=== PATIENT | female | born 1965 | race American Indian/Alaskan Native ===

== ENCOUNTER 2017-03-31 19:22 | Emergency (ER) | payer OTHER ==
[~2017-03-31] VITALS: Ht 157.5 cm; Wt 63.1 kg
[~2017-03-31 19:22] MED LIST: ESCI10TA17 PO; HYDR-3124 PO; ONDA-63 PO
[2017-03-31 19:26] VITALS: TEMP 37.1; Ht 157.5 cm; Wt 63.1 kg
[2017-03-31] MEDS ORDERED: ACETAMINOPHEN 500 MG TAB PO STA (19:39)
[2017-03-31] MEDS ORDERED: ONDANSETRON 4MG OD TAB PO ONE (19:45)
--- NOTE | 2017-03-31 19:47 | EMERGENCY ROOM VISIT NOTE ---
History Report prepared by Amada: Igor Kiran Under the Supervision of: Dr. Brice Baron D.O. First contact with patient: 19:30 Chief Complaint: HEADACHE Stated Complaint: HEADACHE,NAUSEA,HIGH BP,CONCUSSION PER DOC History of Present Illness The patient is a 51 year old female who presents to the Emergency Room with complaints of a headache that began last night. At that time, she was decorating a Sergio tree while standing on an ottoman. She accidentally slipped and fell backwards, hitting the back of her head on an unknown object. She did not lose consciousness. Since then, she has been experiencing this headache with associated dizziness, light sensitivity, nausea, neck stiffness, left calf pain, and left shoulder pain. She went to a walk in clinic 1 hour ago and got referred to the ER for a CT scan on her head. She denies any vomiting. She notes that she has not been able to eat very much recently. She has a history anxiety, depression, endometriosis, a uterine ablation, cyst removals, and celiacs disease. She has been using Ibuprofen for pain management. Source of History: patient Onset: last night Position: head Symptom Intensity: moderate Quality: ache Timing: constant Associated Symptoms: + neck pain, + nausea, + back pain (left shoulder), No LOC, No vomiting Note: She is experiencing light sensitivity and left calf pain. Review of Systems See HPI for pertinent positives & negatives. A total of 10 systems reviewed and were otherwise negative. Past Medical & Surgical Medical Problems: (1) Anxiety (2) Celiac disease (3) Depression (4) Endometriosis Surgical Problems: (1) H/O removal of cyst (2) History of endometrial ablation Family History Patient reports no known family medical history. Social History Smoking Status: Never Smoker Smokeless Tobacco Use: No Drug Use: none Marital Status: Housing Status: lives with family Current/Historical Medications Scheduled Escitalopram (Lexapro), 20 MG PO QPM Hydroxyzine Pamoate (Vistaril), 50 MG PO HS Ondasetron Odt (Zofran Odt), 4 MG SL Q6H Allergies Coded Allergies: Peanut (Verified Allergy, Severe, ANAPHYLAXIS, 03/01/15) NUTS (Verified Allergy, Unknown, ANAPHYLAXIS, 03/02/15) ALL NUTS EXCEPT BLACK WALNUTS No Known Drug Allergy (Verified Allergy, Unknown, PT DENIES ANY DRUG ALLERGIES, 03/02/15) Gluten (Verified Adverse Reaction, Intermediate, GI DISTURBANCES, 03/02/15 ) Physical Exam Vital Signs Date Time Temp Pulse Resp B/P (MAP) Pulse Ox O2 Delivery O2 Flow Rate FiO2 03/31/17 21:21 82 16 122/82 97 03/31/17 20:19 79 20 150/105 99 Room Air 03/31/17 19:57 80 16 162/98 99 Room Air 03/31/17 19:26 37.1 96 18 156/108 98 Room Air Physical Exam GENERAL: Patient is awake, alert, and in no acute distress. Patient is somewhat anxious and uncomfortable appearing. EYES: The conjunctivae are clear. The pupils are round and reactive. EARS, NOSE, MOUTH AND THROAT: The nose is without any evidence of any deformity. Mucous membranes are moist tongue is midline NECK: Tenderness to the left perivertebral musculature of the cervical spine. No midline tenderness appreciated. ROM appears to be intact. RESPIRATORY: Normal respiratory effort is noted there is no evidence of wheezing rhonchi or rales CARDIOVASCULAR: Regular rate and rhythm noted there no murmurs rubs or gallops normal S1 normal S2 GASTROINTESTINAL: The abdomen is soft. Bowel sounds are present in all quadrants. Abdomen is nontender BACK: No midline tenderness or or step-off noted range of motion in flexion extension as well as rotation no signs of muscle spasm noted MUSCULOSKELETAL/EXTREMITIES: There is pain with ROM of the left shoulder. No deformities. Tenderness to the left calf. No ecchymosis or deformity. Gait in steady. SKIN: There is no obvious evidence of any rash. There are no petechiae, pallor or cyanosis noted. NEUROLOGIC: Patient is awake alert and oriented x3 strength is symmetric patellar reflexes are 2+ bilaterally Medical Decision & Procedures ER Provider Diagnostic Interpretation: Radiology results as stated below per my review and radiologist interpretation: L SHOULDER MIN 2 VIEWS ROUTINE CLINICAL HISTORY: fall trauma. Pain. COMPARISON: None. DISCUSSION: Subtle grade 1 separation left acromioclavicular joint. No evidence for fracture. Minimal calcific supraspinatus tendinitis. No evidence of dislocation. There is no evidence for soft tissue swelling. IMPRESSION: Slight grade 1 separation left acromioclavicular joint. Minimal calcific supraspinatus tendinitis. The above report was generated using voice recognition software. It may contain grammatical, syntax or spelling errors. Electronically signed by: Myles Valdovinos M.D. 03/31/2017 8:12 PM Dictated Date/Time: 03/31/2017 8:11 PM HEAD WITHOUT CONTRAST (CT) CT DOSE: 1074.36 mGy.cm HISTORY: Trauma fall TECHNIQUE: Multiaxial CT images of the head were performed without the use of intravenous contrast. A dose lowering technique was utilized adhering to the principles of ALARA. Comparison: None. Findings: The paranasal sinuses and mastoid air cells are clear. The calvarium and skull base are intact. The ventricles and sulci are within normal limits. There is no mass, hematoma, midline shift, or acute infarct. Impression: No acute intracranial abnormality. The above report was generated using voice recognition software. It may contain grammatical, syntax or spelling errors. Electronically signed by: Myles Valdovinos M.D. 03/31/2017 8:47 PM Dictated Date/Time: 03/31/2017 8:46 PM CERVICAL SPINE W/O CT DOSE: HISTORY: Trauma fall TECHNIQUE: Multiaxial CT images of the cervical spine were performed and reformatted in the sagittal and coronal plane without the use of contrast. A dose lowering technique was utilized adhering to the principles of ALARA. COMPARISON: None. FINDINGS: No fractures. No subluxation. Prevertebral soft tissues and the C1-C2 interval are intact. No pneumothorax. Mild degenerative disc change. Mild scoliosis presumably on the basis of muscular spasm IMPRESSION: No fractures within the cervical spine. Muscle spasm. Mild degenerative disc change. The above report was generated using voice recognition software. It may contain grammatical, syntax or spelling errors. Electronically signed by: Myles Valdovinos M.D. 03/31/2017 8:50 PM Dictated Date/Time: 03/31/2017 8:48 PM Medications Administered Medications (Trade) Dose Ordered Sig/Adarsh Route Start Time Stop Time Status Last Admin Dose Admin Ondansetron HCl (Zofran Odt) 4 mg ONE ONCE PO 03/31/17 19:45 03/31/17 19:46 DC 03/31/17 19:45 4 MG Acetaminophen (Tylenol Tab) 1,000 mg NOW STAT PO 03/31/17 19:39 03/31/17 19:40 DC 03/31/17 20:17 1,000 MG Ondansetron HCl (ZOFRAN ODT 4MG Home Pack) 1 homepack UD ONCE PO 03/31/17 21:00 03/31/17 21:01 DC 03/31/17 21:18 1 HOMEPACK Oxycodone HCl (Roxicodone Immediate Rel 5MG Home Pack) 1 homepack UD ONCE PO 03/31/17 21:00 03/31/17 21:01 DC 03/31/17 21:18 1 HOMEPACK ED Course 193: The patient was evaluated in room C1. A complete history and physical examination were performed. 1938: Ordered Tylenol Tab 1000 mg PO 1944: Ordered Zofran Odt 4 mg PO 2099: Ordered Oxycodone HCl 1 homepack PO, Ondansetron HCl 1 homepack PO 2103: Upon reevaluation, the patient is resting. I discussed the results and treatment plan with her. She verbalized agreement of the treatment plan. She was discharged home. Medical Decision Differential diagnosis: Etiologies such as fracture, dislocation, intra-abdominal, pneumothorax, intrathoracic , intracranial, neurologic, as well as other traumatic pathologies were entertained. Nursing notes reviewed. The patient is a 51-year-old female who presented to emergency department for an evaluation of her head injury. The patient had a fall and struck the back of her head. She's been having postconcussive type symptoms ever since. The patient was seen by her primary care physician and sent to the emergency department for further evaluation. The patient did not have any focal neurologic deficit. I discussed the patient's laboratory and radiographic studies with her. Her x-ray appeared to be consistent with an before meals separation but her pain appears to be more over the shoulder. She was given follow-up information with the on-call orthopedic physician. The patient was treated with medication for nausea and the emergency department. She had no focal neurologic deficits. She was encouraged to continue all medications as prescribed and call her primary care physician in the morning for further evaluation and for possible referral to a concussion specialist. Otherwise she was encouraged to continue all medications as prescribed and return to the emergency department immediately if symptoms change worsen or the need arises. Medication Reconcilliation Current Medication List: was personally reviewed by me Blood Pressure Screening Patient's blood pressure: Elevated blood pressure Blood pressure disposition: Elevated BP felt to be situational Impression Primary Impression: Head injury Additional Impressions: Concussion Separation of left acromioclavicular joint Scribe Attestation The scribe's documentation has been prepared under my direction and personally reviewed by me in its entirety. I confirm that the note above accurately reflects all work, treatment, procedures, and medical decision making performed by me. Departure Information Dispostion Home / Self-Care Prescriptions Ondasetron Odt (ZOFRAN ODT) 4 Mg Tab 4 MG SL Q6H for Nausea, #15 TAB Prov: Brice Baron, DO 03/31/17 Referrals Jean Molina M.D. (PCP) Forms HOME CARE DOCUMENTATION FORM, IMPORTANT VISIT INFORMATION, Work Instructions Patient Instructions Concussion, ED Sprain AC Joint, [facility] Additional Instructions Call the orthopedic physician in the morning to schedule a follow-up appointment. Rest and avoid any strenuous activity. Your blood pressure was elevated in the emergency department today. I would recommend a recheck when you 're feeling better from your head injury to determine if you need to be started on medications for your blood pressure. I also recommend continuing to use Motrin and Tylenol as directed. Follow-up with your family doctor to discuss the possibility that you may need a referral to a concussion clinic to further evaluate your symptoms otherwise. Problem Qualifiers Primary Impression: Head injury Encounter type: initial encounter Qualified Codes: S09.90XA - Unspecified injury of head, initial encounter Additional Impressions: Concussion Encounter type: initial encounter Loss of consciousness presence/duration: without LOC Qualified Codes: S06.0X0A - Concussion without loss of consciousness, initial encounter Separation of left acromioclavicular joint Encounter type: initial encounter Qualified Codes: S43.102A - Unspecified dislocation of left acromioclavicular joint, initial encounter
[2017-03-31] MEDS ORDERED: HYDR50CA2 PO (19:59)
--- NOTE | 2017-03-31 20:13 | DIAGNOSTIC IMAGING REPORT ---
L SHOULDER MIN 2 VIEWS ROUTINE CLINICAL HISTORY: fall trauma. Pain. COMPARISON: None. DISCUSSION: Subtle grade 1 separation left acromioclavicular joint. No evidence for fracture. Minimal calcific supraspinatus tendinitis. No evidence of dislocation. There is no evidence for soft tissue swelling. IMPRESSION: Slight grade 1 separation left acromioclavicular joint. Minimal calcific supraspinatus tendinitis. The above report was generated using voice recognition software. It may contain grammatical, syntax or spelling errors. Electronically signed by: Myles Valdovinos M.D. 03/31/2017 8:12 PM Dictated Date/Time: 03/31/2017 8:11 PM
--- NOTE | 2017-03-31 20:49 | DIAGNOSTIC IMAGING REPORT ---
HEAD WITHOUT CONTRAST (CT) CT DOSE: 1074.36 mGy.cm HISTORY: Trauma fall TECHNIQUE: Multiaxial CT images of the head were performed without the use of intravenous contrast. A dose lowering technique was utilized adhering to the principles of ALARA. Comparison: None. Findings: The paranasal sinuses and mastoid air cells are clear. The calvarium and skull base are intact. The ventricles and sulci are within normal limits. There is no mass, hematoma, midline shift, or acute infarct. Impression: No acute intracranial abnormality. The above report was generated using voice recognition software. It may contain grammatical, syntax or spelling errors. Electronically signed by: Myles Valdovinos M.D. 03/31/2017 8:47 PM Dictated Date/Time: 03/31/2017 8:46 PM
--- NOTE | 2017-03-31 20:52 | DIAGNOSTIC IMAGING REPORT ---
CERVICAL SPINE W/O CT DOSE: HISTORY: Trauma fall TECHNIQUE: Multiaxial CT images of the cervical spine were performed and reformatted in the sagittal and coronal plane without the use of contrast. A dose lowering technique was utilized adhering to the principles of ALARA. COMPARISON: None. FINDINGS: No fractures. No subluxation. Prevertebral soft tissues and the C1-C2 interval are intact. No pneumothorax. Mild degenerative disc change. Mild scoliosis presumably on the basis of muscular spasm IMPRESSION: No fractures within the cervical spine. Muscle spasm. Mild degenerative disc change. The above report was generated using voice recognition software. It may contain grammatical, syntax or spelling errors. Electronically signed by: Myles Valdovinos M.D. 03/31/2017 8:50 PM Dictated Date/Time: 03/31/2017 8:48 PM
[2017-03-31] MEDS ORDERED: ONDA4TAB10 SL (20:56)
[2017-03-31] MEDS ORDERED: ONDANSETRON HOME PACK 4MG OD TAB PO ONE (21:00)
[2017-03-31] MEDS ORDERED: OXYCODONE IR HOME PACK PO ONE (21:00)
[2017-03-31 21:21] VITALS: BP 122/82; PULSE 82; O2SAT 97
== END 2017-03-31 21:24 | disposition home or self-care (01) ==
LOC: C.EDB 19:23 → C.EDC 21:24
DX: S06.0X0A Concussion without loss of consciousness, initial encounter (principal); S43.102A Unspecified dislocation of left acromioclavicular joint, initial encounter; W08.XXXA Fall from other furniture, initial encounter; W22.8XXA Striking against or struck by other objects, initial encounter; R03.0 Elevated blood-pressure reading, without diagnosis of hypertension

== ENCOUNTER 2017-04-08 10:11 | Emergency (ER) | payer OTHER ==
[~2017-04-08] VITALS: Ht 157.5 cm; Wt 61.8 kg
[~2017-04-08 10:11] MED LIST changes: -HYDR-3124 PO; +HYDR50CA2 PO; -ONDA-63 PO; +ONDA4TAB10 SL
[2017-04-08 10:14] VITALS: TEMP 36.9; Ht 157.5 cm; Wt 61.8 kg
[2017-04-08] MEDS ORDERED: DiphenhydrAMINE HCL 50 MG/ML VIAL IV STA (10:34)
[2017-04-08] MEDS ORDERED: SODIUM CHLORIDE 0.9% 500ML 500 ML IV STA (10:34)
[2017-04-08] MEDS ORDERED: PROCHLORPERAZINE 5 MG/ML 2 ML VIAL IV STA (10:34)
[2017-04-08] MEDS ORDERED: ONDA4TAB10 SL (10:47)
[2017-04-08 11:30] LABS: BASO % 0.5 %; BASO ABS # 0.05 K/uL (0-0.2); COMPLETE YES; EOS % 4.1 %; HEMATOCRIT 43.6 % (37-47); IG% 0.1 %; LYMPH % 26.3 %; LYMPH ABS # 2.62 K/uL (1.2-3.4); MEAN CELL VOLUME 84.8 fL (80-100); MEAN CORPUSCULAR HEMOGLOBIN 30.5 pg (25-34); MEAN PLATELET VOLUME 9.4 fL (7.4-10.4); MONO % 4.5 %; NEUT % 64.5 %; PLATELET COUNT 312 K/uL (130-400); RED BLOOD COUNT 5.14 M/uL (4.2-5.4); WHITE BLOOD COUNT 9.96 K/uL (4.8-10.8)
[2017-04-08 11:45] LABS: CALCIUM 9.1 mg/dl (8.5-10.1); CREATININE 0.81 mg/dl (0.60-1.20); POTASSIUM 3.6 mmol/L (3.5-5.1)
--- NOTE | 2017-04-08 12:16 | DIAGNOSTIC IMAGING REPORT ---
HEAD WITHOUT CONTRAST (CT) CLINICAL HISTORY: 51 years-old Female with fall hit head. Acute head injury status post fall. Acute headache with nausea TECHNIQUE: Multiple axial CT images of the head were obtained without contrast. A dose lowering technique was utilized adhering to the principles of ALARA. CT DOSE: 776.86 mGycm COMPARISON: Head CT 03/31/2017. FINDINGS: No acute intracranial hemorrhage, midline shift, intracranial mass, hydrocephalus, territorial ischemia or abnormal extra-axial collection. The calvarium is intact. The paranasal sinuses, mastoid air cells, and middle ear cavities are clear. There is mild mucosal thickening of the posterior left nasal terminate, partially imaged. IMPRESSION: No acute intracranial abnormal. The above report was generated using voice recognition software. It may contain grammatical, syntax or spelling errors. Electronically signed by: Trae Castro M.D. 04/08/2017 12:14 PM Dictated Date/Time: 04/08/2017 12:12 PM
[2017-04-08 12:44] VITALS: BP 138/95; PULSE 76; O2SAT 97
--- NOTE | 2017-04-08 16:22 | EMERGENCY ROOM VISIT NOTE ---
History Report prepared by Amada: Brayan Colon Under the Supervision of: Dr. Earl Blanco D.O. First contact with patient: 10:23 Chief Complaint: HEAD INJURY (MINOR) Stated Complaint: EXTREME HEADACHE FROM FALL, NAUSEA History of Present Illness The patient is a 51 year old female who presents to the Emergency Room with complaints of worsening headache for the past two days. The patient states that a week and two days ago, the patient states that she fell off an ottoman, and she hit the back of her head. She came to the ED, and she was diagnosed with a concussion and a AC joint in her shoulder. She did not lose consciousness during the event. The patient states that she was given oxycodone , and this has not been able to help her pain recently. The patient notes that for the past two days the headache has worsened in the front of her head, and it is an extreme pain. She additionally is complaining of some neck pain, nausea , and shoulder pain. Pt denies fevers, ear pain, change in vision, numbness, weakness in extremities, chest pain, shortness of breath, vomiting, diarrhea, pain with urination, and melena. Source of History: patient Onset: two days ago Position: head Symptom Intensity: extreme Quality: ache Timing: worsening Associated Symptoms: + neck pain, + nausea, No weakness, No numbness Note: Associated symptoms: Shoulder pain Review of Systems See HPI for pertinent positives & negatives. A total of 10 systems reviewed and were otherwise negative. Past Medical & Surgical Medical Problems: (1) Anxiety (2) Celiac disease (3) Depression (4) Endometriosis Surgical Problems: (1) H/O removal of cyst (2) History of endometrial ablation Family History Patient reports no known family medical history. Social History Smoking Status: Never Smoker Drug Use: none Marital Status: Housing Status: lives with family Current/Historical Medications Scheduled Escitalopram (Lexapro), 20 MG PO QPM Hydroxyzine Pamoate (Vistaril), 50 MG PO HS Ondasetron Odt (Zofran Odt), 4 MG SL Q6H Allergies Coded Allergies: Peanut (Verified Allergy, Severe, ANAPHYLAXIS, 04/08/17) NUTS (Verified Allergy, Unknown, ANAPHYLAXIS, 04/08/17) ALL NUTS EXCEPT BLACK WALNUTS No Known Drug Allergy (Verified Allergy, Unknown, PT DENIES ANY DRUG ALLERGIES, 04/08/17) Gluten (Verified Adverse Reaction, Intermediate, GI DISTURBANCES, 04/08/17) Physical Exam Vital Signs Date Time Temp Pulse Resp B/P (MAP) Pulse Ox O2 Delivery O2 Flow Rate FiO2 04/08/17 12:44 76 20 138/95 97 04/08/17 11:52 74 20 143/82 98 Room Air 04/08/17 11:05 78 20 158/95 96 Room Air 04/08/17 10:18 18 04/08/17 10:14 36.9 104 18 152/113 99 Room Air Physical Exam GENERAL: Laying in bed covering her face with a shirt. No acute distress. EYE EXAM: normal conjunctiva. PERRL and EOM's intact. Funduscopic exam reveals that optic disc is shrap. No AV nicking. OROPHARYNX: no exudate, no erythema, lips, buccal mucosa, and tongue normal and mucous membranes are moist NECK: supple, no nuchal rigidity, no adenopathy, non-tender with full range of motion. LUNGS: Clear to auscultation. Normal chest wall mechanics HEART: no murmurs, S1 normal and S2 normal ABDOMEN: abdomen soft, non-tender, normo-active bowel sounds, no masses, no rebound or guarding. BACK: Back is symmetrical on inspection and there is no deformity, no midline tenderness, no CVA tenderness. SKIN: no rashes and no bruising UPPER EXTREMITIES: upper extremities are grossly normal. LOWER EXTREMITIES: No pitting edema. NEURO EXAM: Normal sensorium, cranial nerves II-XII grossly intact, normal speech, no gross weakness of arms, no gross weakness of legs. No drift. Finger to nose intact. Gross sensation intact. Rapid alternating movements of the upper extremities intact. Medical Decision & Procedures ER Provider Diagnostic Interpretation: Radiology results as stated below per my review and the radiologist's interpretation: HEAD WITHOUT CONTRAST (CT) CLINICAL HISTORY: 51 years-old Female with fall hit head. Acute head injury status post fall. Acute headache with nausea TECHNIQUE: Multiple axial CT images of the head were obtained without contrast. A dose lowering technique was utilized adhering to the principles of ALARA. CT DOSE: 776.86 mGycm COMPARISON: Head CT 03/31/2017. FINDINGS: No acute intracranial hemorrhage, midline shift, intracranial mass, hydrocephalus, territorial ischemia or abnormal extra-axial collection. The calvarium is intact. The paranasal sinuses, mastoid air cells, and middle ear cavities are clear. There is mild mucosal thickening of the posterior left nasal terminate, partially imaged. IMPRESSION: No acute intracranial abnormal. The above report was generated using voice recognition software. It may contain grammatical, syntax or spelling errors. Electronically signed by: Trae Castro M.D. 04/08/2017 12:14 PM Dictated Date/Time: 04/08/2017 12:12 PM Laboratory Results 04/08/17 10:55 Red Blood Count 5.14, Mean Corpuscular Volume 84.8, Mean Corpuscular Hemoglobin 30.5, Mean Corpuscular Hemoglobin Concent 36.0, Mean Platelet Volume 9.4, Neutrophils (%) (Auto) 64.5, Lymphocytes (%) (Auto) 26.3, Monocytes (%) (Auto) 4.5, Eosinophils (%) (Auto) 4.1, Basophils (%) (Auto) 0.5, Neutrophils # (Auto) 6.42, Lymphocytes # (Auto) 2.62, Monocytes # (Auto) 0.45, Eosinophils # (Auto) 0.41, Basophils # (Auto) 0.05 04/08/17 10:55 Test 04/08/17 10:55 White Blood Count 9.96 K/uL (4.8-10.8) Red Blood Count 5.14 M/uL (4.2-5.4) Hemoglobin 15.7 g/dL (12.0-16.0) Hematocrit 43.6 % (37-47) Mean Corpuscular Volume 84.8 fL (80-100) Mean Corpuscular Hemoglobin 30.5 pg (25-34) Mean Corpuscular Hemoglobin Concent 36.0 g/dl (32-36) Platelet Count 312 K/uL (130-400) Mean Platelet Volume 9.4 fL (7.4-10.4) Neutrophils (%) (Auto) 64.5 % Lymphocytes (%) (Auto) 26.3 % Monocytes (%) (Auto) 4.5 % Eosinophils (%) (Auto) 4.1 % Basophils (%) (Auto) 0.5 % Neutrophils # (Auto) 6.42 K/uL (1.4-6.5) Lymphocytes # (Auto) 2.62 K/uL (1.2-3.4) Monocytes # (Auto) 0.45 K/uL (0.11-0.59) Eosinophils # (Auto) 0.41 K/uL (0-0.5) Basophils # (Auto) 0.05 K/uL (0-0.2) RDW Standard Deviation 39.4 fL (36.4-46.3) RDW Coefficient of Variation 12.9 % (11.5-14.5) Immature Granulocyte % (Auto) 0.1 % Immature Granulocyte # (Auto) 0.01 K/uL (0.00-0.02) Anion Gap 7.0 mmol/L (3-11) Est Creatinine Clear Calc Drug Dose 72.7 ml/min Estimated GFR () 98.8 Estimated GFR (Non- 85.3 BUN/Creatinine Ratio 12.0 (10-20) Calcium Level 9.1 mg/dl (8.5-10.1) Laboratory results per my review. Medications Administered Medications (Trade) Dose Ordered Sig/Adarsh Route Start Time Stop Time Status Last Admin Dose Admin Diphenhydramine HCl (Benadryl Inj) 50 mg NOW STAT IV 04/08/17 10:34 04/08/17 10:35 DC 04/08/17 10:57 50 MG Prochlorperazine Edisylate (Compazine Inj) 10 mg NOW STAT IV 04/08/17 10:34 04/08/17 10:35 DC 04/08/17 10:57 10 MG Sodium Chloride 500 ml @ 999 mls/hr Q31M STAT IV 04/08/17 10:34 04/08/17 11:04 DC 04/08/17 10:57 999 MLS/HR ED Course ED COURSE: Vital signs were reviewed and showed tachycardia and hypertension The patients medical record was reviewed The above diagnostic studies were performed and reviewed. ED treatments and interventions as stated above. 1023: The patient was evaluated in room C9. A complete history and physical examination was performed. 1034: Sodium Chloride 500 ml @ 999 mls/hr IV, Compazine 10mg IV, Benadryl 50mg IV 1212: I reevaluated the patient, and she was feeling much better 1233: Upon reevaluation, the patient is doing much better.I discussed my findings with the patient and she understands and agrees with the treatment plan. Based on the patients age, coexisting illnesses, exam and lab findings the decision to treat as an outpatient was made. The patient remained stable while under my care. The patient appeared well at the time of discharge. Medical Decision Differential Diagnosis includes but is not limited to headache, tension headache , cluster headache, migraine, subarachnoid hemorrhage, meningitis, mass, central venous thrombus, concussion, trauma and epidural/subdural hemorrhage. Patient is a 51-year-old female who presents to ER for a headache. This has been present for the past 10 days following a fall which she hit her head. CT at that time was negative. She has the headache has been persistent in the frontal region and back of her head. Recently over the past 48 hours it has been worsening. She is completely neurologically intact. Headache is the same type pain that she has been feeling but worse. It was not sudden on onset. No fevers. No signs meningitis or encephalitis. Repeat CT head was negative. CBC and BMP were unremarkable. Patient was given IV Benadryl and Compazine. She had significant improvement of her symptoms. Again on reevaluation she is completely neurologically intact. She was updated at bedside. She is discharged as I feel this is consistent with worsening of her concussion. I do not believe that this is SAH based on her presentation. Discussed with Pt concerning signs and symptoms to watch out for. Pt was instructed to follow up with their PCP and discussed with the patient their option to return to the ED at anytime for persistent or worsening symptoms. The appropriate anticipatory guidance and out-patient management, including indications for return to the emergency department, were explained at length to the patient and understood. Medication Reconcilliation Current Medication List: was personally reviewed by me Blood Pressure Screening Patient's blood pressure: Elevated blood pressure Blood pressure disposition: Elevated BP felt to be situational Impression Primary Impression: Concussion Additional Impression: Cephalgia Scribe Attestation The scribe's documentation has been prepared under my direction and personally reviewed by me in its entirety. I confirm that the note above accurately reflects all work, treatment, procedures, and medical decision making performed by me. Departure Information Dispostion Home / Self-Care Referrals No Doctor, Assigned (PCP) Forms HOME CARE DOCUMENTATION FORM, IMPORTANT VISIT INFORMATION Patient Instructions ED Concussion, My [facility] Additional Instructions Please follow up with your primary care doctor with in the next 24 hours. Any worsening of your symptoms, please return to the ED immediately. This includes any fevers greater than 100.4, worsening pain, confusion, weakness or numbness in arms or legs, chest pain, shortness breath, persistent nausea, vomiting, unable to eat or drink, or any other concerning signs or symptoms from your standpoint. You were given medications during this visit that will inhibit your ability to drive, operate machinery and work. Please do NOT drive, operate machinery, drink alcohol or work for the next 12hrs. Please take Motrin or Tylenol as needed for pain. Problem Qualifiers Primary Impression: Concussion Encounter type: subsequent encounter Loss of consciousness presence/duration : without LOC Qualified Codes: S06.0X0D - Concussion without loss of consciousness, subsequent encounter Additional Impression: Cephalgia Headache type: unspecified Headache chronicity pattern: acute headache Intractability: not intractable Qualified Codes: R51 - Headache
== END 2017-04-08 12:45 | disposition home or self-care (01) ==
LOC: C.EDB 10:13 → C.EDC 12:45
DX: S06.0X9D Concussion with loss of consciousness of unspecified duration, subsequent encounter (principal); W07.XXXD Fall from chair, subsequent encounter; S43.109D Unspecified dislocation of unspecified acromioclavicular joint, subsequent encounter; R51 Headache; R03.0 Elevated blood-pressure reading, without diagnosis of hypertension

== ENCOUNTER 2017-11-30 14:43 | Emergency (ER) | payer OTHER ==
[~2017-11-30] VITALS: Ht 157.5 cm; Wt 61.0 kg
[~2017-11-30 14:43] MED LIST changes: -HYDR50CA2 PO
[2017-11-30 14:45] VITALS: TEMP 36.6; Ht 157.5 cm; Wt 61.0 kg
[2017-11-30] MEDS ORDERED: SODIUM CHLORIDE 0.9% 1000ML 1,000 ML IV STA (15:02)
--- NOTE | 2017-11-30 15:23 | EMERGENCY ROOM VISIT NOTE ---
ED Visit Note First contact with patient: 14:50 CHIEF COMPLAINT: Dizziness, syncope HISTORY OF PRESENTING ILLNESS: This is a 51-year-old female who presents to the emergency department by private vehicle with her with complaint of dizziness/lightheadedness that has been intermittent for the past several days. Patient states that she was walking outside in the field 2 days ago when she began to feel very lightheaded, nauseated, hot and cold with sweats, she states that she sat down and then fell to her side and passed out for a few seconds. The episode was witnessed, there was no seizure-like activity reported, and she states that she did not hit her head. She states since that time that she has been feeling intermittently lightheaded and dizzy, especially with walking or exerting herself. She also notes that her left arm has been feeling cold and tingly at times, she thinks she may have fallen onto her left arm when she passed out 2 days ago. She states that when she feels dizzy she has also had some feelings of shortness of breath and aching in the left side of her chest, but this has not been persistent or consistent, she states she does not feel that every time she gets dizzy, and she denies any symptoms of chest pain or shortness of breath at this time. She has not noticed increased dizziness with position changes. She denies any associated headache, vision changes, neck pain or stiffness, abdominal pain, vomiting, diarrhea, urinary symptoms, or unusual rash. She does note that she had a head injury and concussion about 8 months ago, but states that she feels she has recovered well from this. She does also mention that she has been having some dizzy spells off and on for the past several months, but has not been evaluated by her doctor for this. She did call her doctor's office today about her symptoms and was told to go to the ED for further evaluation. REVIEW OF SYSTEMS: A complete 10 point review of systems was reviewed with the patient with pertinent positives and negatives as per history of present illness. All else were negative. PAST MEDICAL HISTORY: Reviewed in chart, see problem list below. SOCIAL HISTORY: Lives at home with her . She denies tobacco use. ALLERGIES: Reviewed in chart, see below. PHYSICAL EXAM: CONSTITUTIONAL: Pleasant and cooperative. No acute distress. Mildly dehydrated , but otherwise well appearing and well nourished. HEENT: Normocephalic, atraumatic. Pupils equal, round and reactive to light, EOMI. TMs normal bilaterally. Pharynx normal. Tacky mucous membranes. NECK: Supple, full active range of motion without discomfort. No cervical adenopathy. RESPIRATORY: Clear to auscultation bilaterally with no wheezing, crackles, rhonchi or stridor. Equal expansion bilaterally. CARDIOVASCULAR: Regular rate and rhythm with no murmurs, rubs or gallops. Normal peripheral perfusion. No edema. GASTROINTESTINAL: Soft, nontender, nondistended. No palpable masses or HSM. Bowel sounds present in all quadrants. MUSCULOSKELETAL: No swelling or tenderness to palpation of the calves bilaterally. Negative Homans sign bilaterally. Full range of motion of all joints without discomfort. INTEGUMENTARY: No rash or other significant dermatologic conditions noted. NEUROLOGIC: Alert and oriented X 4 with normal affect. Cranial nerves II-XII grossly intact, no facial droop. No pronator drift. No focal neurologic deficits noted. 5/5 strength in all 4 extremities. Sensation intact to light touch in all 4 extremities. Normal speech. Normal gait observed. Finger-nose- finger testing normal. Negative Romberg. ED COURSE AND MEDICAL DECISION MAKING: CC: Patient presenting with complaint of dizziness/lightheaded, syncope DIFFERENTIAL DIAGNOSIS: Includes, but not limited to orthostatic, vasovagal, dehydration, electrolyte abnormality, anemia, CVA, intracranial hemorrhage, cardiac dysrhythmia, PE, among others. INTERPRETATION OF LABS: No leukocytosis, no anemia, normal platelets, mild hypokalemia, no other significant electrolyte abnormalities, normal renal function, normal liver enzymes. TSH within normal limits. Negative troponin. Serum negative. Negative d-dimer. IMAGING: HEAD CT NONCONTRAST CT DOSE: 638.56 mGycm HISTORY: Dizziness. EVALUATE ALTERED MENTAL STATUS/WEAKNESS TECHNIQUE: Multiaxial CT images of the head were performed without the use of intravenous contrast. Automated exposure control was utilized for this study. A dose lowering technique was utilized adhering to the principles of ALARA. Comparison: Head CT 04/08/2017. Findings: The paranasal sinuses and mastoid air cells are clear. The calvarium and skull base are intact. The ventricles and sulci are within normal limits. There is no mass, hematoma, midline shift, or acute infarct. Impression: No acute intracranial abnormality. ----- TWO VIEW CHEST CLINICAL HISTORY: Weakness. Change in mental status. Syncope. FINDINGS: PA and lateral chest radiographs are compared to study dated 10/10/2010. The cardiomediastinal silhouette is unremarkable. The lungs and pleural spaces are clear. An apparent 3.5 cm density projects along the left heart border. There is no pneumothorax. The bony thorax appears intact. IMPRESSION: 1. No active disease in the chest. 2. An apparent 3.5 cm density projects over the left heart border on the PA view. This could not be corroborated on the lateral view and likely represents overlying soft tissue. A precautionary 1-2 month follow-up examination is recommend. EKG: Shows normal sinus rhythm with a rate of 76 bpm, no ST or T-wave changes, no ectopy, no significant changes noted when compared to his EKG from 12/24/2017 by my interpretation. MEDICATION RECONCILIATION: I attest that I have personally reviewed the patient 's current medication list. INITIAL VITAL SIGNS REVIEW: I reviewed the patient's initial vital signs and interpret them as follows: T: Afebrile; BP: Hypertensive; HR: Within normal limits; RR: Within normal limits; Pulse Ox: Within normal limits on room air. Blood pressure screening: The patient was found to have an elevated blood pressure, she was started on blood pressure medication today and was referred to her primary doctor for recheck and further treatment. SUMMARY: Patient was evaluated at bedside, history and physical exam performed. Patient is alert and oriented, in no acute distress, resting calmly in stretcher. Neurologic exam is normal with no focal deficits. Specifically, no weakness or sensory deficits of the left arm. Patient does appear to be mildly dehydrated on exam, but is not orthostatic. She is also noted to be hypertensive, she denies any history of this and is not on any medications. EKG shows normal sinus rhythm with no acute ischemic changes. Orders were placed at bedside for labs, UA, , IV fluids for hydration, chest x-ray, head CT to evaluate for dizziness and syncope. Patient discussed with Dr. Cerda, who agrees with my assessment and plan. Labs and imaging reviewed as above, unremarkable workup. Head CT negative. She is low risk by well's criteria for PE, and her d-dimer is negative today. She continues to be persistently hypertensive with systolic blood pressures in the 150s and diastolic blood pressures in the 100s. I discussed with the patient the option of starting her on a low dose of blood pressure medication to start managing her blood pressure, she was agreeable to this plan. 5 mg lisinopril was ordered at this time, and Rx was sent to the pharmacy. Patient was educated regarding this medication. Patient reassessed multiple times throughout ED stay, she has remained stable, and has not had any complaints while in the ED. She has remained recently hypertensive. Patient was updated on all results and plan for discharge, she was encouraged to follow closely with her PCP for further workup of her dizziness and hypertension. Patient was also given strict return precautions should her symptoms worsen, she verbalized understanding. Patient was discharged home in stable condition and ambulatory. Problem List Medical Problems: (1) Anxiety Status: Chronic (2) Celiac disease Status: Chronic (3) Depression Status: Chronic (4) Endometriosis Status: Chronic Surgical Problems: (1) H/O removal of cyst Status: Resolved (2) History of endometrial ablation Status: Resolved Current/Historical Medications Scheduled Lisinopril (Zestril), 1 TAB PO DAILY Scheduled PRN Escitalopram Oxalate (Escitalopram Oxalate), 20 MG PO HS PRN for Anxiety Hydroxyzine Pamoate (Vistaril), 50-100 MG PO HS PRN for Anxiety Allergies Coded Allergies: Peanut (Verified Allergy, Severe, ANAPHYLAXIS, 04/08/17) NUTS (Verified Allergy, Unknown, ANAPHYLAXIS, 04/08/17) ALL NUTS EXCEPT BLACK WALNUTS No Known Drug Allergy (Verified Allergy, Unknown, PT DENIES ANY DRUG ALLERGIES, 04/08/17) Gluten (Verified Adverse Reaction, Intermediate, GI DISTURBANCES, 04/08/17) Vital Signs Date Time Temp Pulse Resp B/P (MAP) Pulse Ox O2 Delivery O2 Flow Rate FiO2 11/30/17 19:38 78 16 165/90 99 11/30/17 19:01 71 16 163/86 99 Room Air 11/30/17 17:15 82 18 141/95 99 Room Air 11/30/17 15:31 100 Room Air 11/30/17 15:19 75 18 146/91 98 Room Air 80 151/107 88 152/106 11/30/17 15:09 84 11/30/17 14:52 80 18 176/95 99 Room Air 94 176/104 96 152/103 7/30/18 14:45 36.6 92 18 159/106 100 Room Air Laboratory Results 11/30/17 15:15 Red Blood Count 5.25, Mean Corpuscular Volume 86.9, Mean Corpuscular Hemoglobin 30.5, Mean Corpuscular Hemoglobin Concent 35.1, Mean Platelet Volume 10.2, Neutrophils (%) (Auto) 52.9, Lymphocytes (%) (Auto) 32.6, Monocytes (%) (Auto) 5.3, Eosinophils (%) (Auto) 8.3, Basophils (%) (Auto) 0.6, Neutrophils # (Auto) 4.24, Lymphocytes # (Auto) 2.61, Monocytes # (Auto) 0.42, Eosinophils # (Auto) 0.66, Basophils # (Auto) 0.05 11/30/17 15:15 Test 11/30/17 15:15 11/30/17 15:27 11/30/17 15:32 White Blood Count 8.00 K/uL (4.8-10.8) Red Blood Count 5.25 M/uL (4.2-5.4) Hemoglobin 16.0 g/dL (12.0-16.0) Hematocrit 45.6 % (37-47) Mean Corpuscular Volume 86.9 fL (80-100) Mean Corpuscular Hemoglobin 30.5 pg (25-34) Mean Corpuscular Hemoglobin Concent 35.1 g/dl (32-36) Platelet Count 312 K/uL (130-400) Mean Platelet Volume 10.2 fL (7.4-10.4) Neutrophils (%) (Auto) 52.9 % Lymphocytes (%) (Auto) 32.6 % Monocytes (%) (Auto) 5.3 % Eosinophils (%) (Auto) 8.3 % Basophils (%) (Auto) 0.6 % Neutrophils # (Auto) 4.24 K/uL (1.4-6.5) Lymphocytes # (Auto) 2.61 K/uL (1.2-3.4) Monocytes # (Auto) 0.42 K/uL (0.11-0.59) Eosinophils # (Auto) 0.66 K/uL (0-0.5) Basophils # (Auto) 0.05 K/uL (0-0.2) RDW Standard Deviation 41.3 fL (36.4-46.3) RDW Coefficient of Variation 12.9 % (11.5-14.5) Immature Granulocyte % (Auto) 0.3 % Immature Granulocyte # (Auto) 0.02 K/uL (0.00-0.02) Anion Gap 8.0 mmol/L (3-11) Est Creatinine Clear Calc Drug Dose 71.4 ml/min Estimated GFR () 97.4 Estimated GFR (Non- 84.0 BUN/Creatinine Ratio 14.7 (10-20) Calcium Level 9.1 mg/dl (8.5-10.1) Magnesium Level 2.3 mg/dl (1.8-2.4) Total Bilirubin 0.8 mg/dl (0.2-1) Direct Bilirubin 0.2 mg/dl (0-0.2) Aspartate Amino Transf (AST/SGOT) 43 U/L (15-37) Alanine Aminotransferase (ALT/SGPT) 90 U/L (12-78) Alkaline Phosphatase 73 U/L (45-117) Troponin I < 0.015 ng/ml (0-0.045) Total Protein 8.1 gm/dl (6.4-8.2) Albumin 4.0 gm/dl (3.4-5.0) Thyroid Stimulating Hormone (TSH) 1.870 uIu/ml (0.300-4.500) Human Chorionic Gonadotropin, Qual NEG (NEG) Bedside Glucose 95 mg/dl (70-90) Bedside D-Dimer 276 ng/mlFEU (0-450) Medications Administered Medications (Trade) Dose Ordered Sig/Adarsh Route Start Time Stop Time Status Last Admin Dose Admin Sodium Chloride 1,000 ml @ 999 mls/hr Q1H1M STAT IV 11/30/17 15:02 11/30/17 16:02 DC 11/30/17 16:06 999 MLS/HR Lisinopril (Zestril Tab) 5 mg NOW ONCE PO 11/30/17 18:45 11/30/17 18:46 DC 11/30/17 18:57 5 MG Departure Information Impression Primary Impression: Lightheadedness Additional Impression: Hypertension Dispostion Home / Self-Care Condition GOOD Prescriptions Lisinopril (ZESTRIL) 5 Mg Tab 1 TAB PO DAILY for 30 Days, #30 TAB Prov: Elsa Varela CRNP 11/30/17 Referrals Jean Molina M.D. (PCP) Patient Instructions ED Dizziness [facility], ED Hypertension New Begin Tx, Lisinopril tablets, My [facility] Additional Instructions You have been evaluated in the emergency department for your lightheadedness. Laboratory results and imaging studies have ruled out any emergent causes for your symptoms which would warrant admission or surgery. You were found to have very high blood pressure during your emergency department stay. You have been prescribed lisinopril 5 mg tablets, take 1 tablet daily to help manage your blood pressure. It is important that you stay well hydrated. Drink plenty of fluids throughout the day to accomplish this. You should follow-up with your primary care provider in the next few days for further evaluation of your lightheadedness and high blood pressure. Call tomorrow to schedule an appointment. Please return to the emergency department for any worsening symptoms, including chest pain, shortness of breath or inability to catch your breath, coughing up blood, severe worsening dizziness or passing out, severe nausea or persistent vomiting, severe headaches, blurry or double vision, loss of feeling or movement in the arms or legs, or any other concerns. Work Instructions Return To Work: 2 days Problem Qualifiers Additional Impression: Hypertension Hypertension type: unspecified Qualified Codes: I10 - Essential (primary) hypertension
[2017-11-30] MEDS ORDERED: LXP/20 PO (15:25)
[2017-11-30 15:31] VITALS: O2SAT 100
[2017-11-30 15:42] LABS: BASO % 0.6 %; BASO ABS # 0.05 K/uL (0-0.2); EOS % 8.3 %; EOS ABS # 0.66 K/uL (0-0.5); HEMATOCRIT 45.6 % (37-47); IG# 0.02 K/uL (0.00-0.02); LYMPH % 32.6 %; LYMPH ABS # 2.61 K/uL (1.2-3.4); MEAN CELL VOLUME 86.9 fL (80-100); MEAN CORPUSCULAR HEMOGLOBIN 30.5 pg (25-34); MEAN CORPUSCULAR HGB CONC 35.1 g/dl (32-36); MEAN PLATELET VOLUME 10.2 fL (7.4-10.4); MONO % 5.3 %; MONO ABS # 0.42 K/uL (0.11-0.59); NEUT % 52.9 %; NEUT ABS # 4.24 K/uL (1.4-6.5); PLATELET COUNT 312 K/uL (130-400); RED CELL DISTRIBUTION WIDTH CV 12.9 % (11.5-14.5); RED CELL DISTRIBUTION WIDTH SD 41.3 fL (36.4-46.3)
[2017-11-30 16:14] LABS: ALKALINE PHOSPHATASE 73 U/L (45-117); ALT/SGPT 90 U/L (12-78); AST/SGOT 43 U/L (15-37); BLOOD UREA NITROGEN 12 mg/dl (7-18); CALCIUM 9.1 mg/dl (8.5-10.1); CARBON DIOXIDE 25 mmol/L (21-32); CREATININE 0.82 mg/dl (0.60-1.20); GLUCOSE 96 mg/dl (70-99); POTASSIUM 3.3 mmol/L (3.5-5.1); SODIUM 138 mmol/L (136-145); TOTAL PROTEIN 8.1 gm/dl (6.4-8.2)
--- NOTE | 2017-11-30 16:52 | DIAGNOSTIC IMAGING REPORT ---
HEAD CT NONCONTRAST CT DOSE: 638.56 mGycm HISTORY: Dizziness. EVALUATE ALTERED MENTAL STATUS/WEAKNESS TECHNIQUE: Multiaxial CT images of the head were performed without the use of intravenous contrast. Automated exposure control was utilized for this study. A dose lowering technique was utilized adhering to the principles of ALARA. Comparison: Head CT 04/08/2017. Findings: The paranasal sinuses and mastoid air cells are clear. The calvarium and skull base are intact. The ventricles and sulci are within normal limits. There is no mass, hematoma, midline shift, or acute infarct. Impression: No acute intracranial abnormality. Electronically signed by: Joel Garcia M.D. 11/30/2017 4:51 PM Dictated Date/Time: 11/30/2017 4:48 PM
--- NOTE | 2017-11-30 18:04 | DIAGNOSTIC IMAGING REPORT ---
TWO VIEW CHEST CLINICAL HISTORY: Weakness. Change in mental status. Syncope. FINDINGS: PA and lateral chest radiographs are compared to study dated 10/10/2010. The cardiomediastinal silhouette is unremarkable. The lungs and pleural spaces are clear. An apparent 3.5 cm density projects along the left heart border. There is no pneumothorax. The bony thorax appears intact. IMPRESSION: 1. No active disease in the chest. 2. An apparent 3.5 cm density projects over the left heart border on the PA view. This could not be corroborated on the lateral view and likely represents overlying soft tissue. A precautionary 1-2 month follow-up examination is recommend. Electronically signed by: Mark Flowers M.D. 11/30/2017 6:03 PM Dictated Date/Time: 11/30/2017 5:51 PM
[2017-11-30] MEDS ORDERED: LISI-790 PO (18:39)
[2017-11-30] MEDS ORDERED: LISINOPRIL 5 MG TAB PO ONE (18:45)
[2017-11-30 19:38] VITALS: BP 165/90; PULSE 78; O2SAT 99
[2017-11-30] MEDS ORDERED: HYDR50CA2 PO (19:59)
== END 2017-11-30 19:38 | disposition home or self-care (01) ==
LOC: C.EDB 14:44 → C.EDA 19:38
DX: R55 Syncope and collapse (principal); R42 Dizziness and giddiness; I10 Essential (primary) hypertension; F41.9 Anxiety disorder, unspecified; F32.9 Major depressive disorder, single episode, unspecified; Z79.899 Other long term (current) drug therapy; Z88.8 Allergy status to other drugs, medicaments and biological substances; Z91.010 Allergy to peanuts; Z91.018 Allergy to other foods; Z91.011 Allergy to milk products

== ENCOUNTER → 2017-12-07 | Outpatient (CLI) | payer OTHER ==
[~2017-12-07] MED LIST changes: -ESCI10TA17 PO; +HYDR50CA2 PO; +LISI-790 PO; +LXP/20 PO; -ONDA4TAB10 SL
--- NOTE | 2017-12-07 12:02 | DIAGNOSTIC IMAGING REPORT ---
CHEST 2 VIEWS ROUTINE CLINICAL HISTORY: Follow-up abnormal chest radiograph. COMPARISON STUDY: Chest radiographs October 10, 2010 and November 30, 2017. FINDINGS: Lung volumes are normal. No pneumothorax or pleural effusion is noted. There is no consolidation or evidence for pulmonary edema. The possible left lower lung opacity shown on exam of November 30, 2017 is not visualized on this exam. Nipple shadow projects over the left lower lung. IMPRESSION: No acute cardiopulmonary findings. Nonvisualization of the apparent left lower lung opacity shown on exam of November 30, 2017. This reflected artifact or airspace opacity which has resolved. Electronically signed by: Bartolo Sheets M.D. 12/07/2017 12:01 PM Dictated Date/Time: 12/07/2017 11:59 AM
== END | disposition home or self-care (01) ==
LOC: C.RAD1850 11:42
PROVIDERS: ATTEND Family Medicine
DX: R93.8 Abnormal findings on diagnostic imaging of other specified body structures (principal)